=== PATIENT | female | born 1990 | race African-American/Black ===

== ENCOUNTER 2021-09-12 19:00 | Inpatient (IN) | payer OTHER ==
[2021-09-12 20:23] LABS: EOS % 1.2 % (0-4.5); HEMATOCRIT 30.6 % (32.4-45.2); HEMOGLOBIN 9.9 GM/dL (10.7-15.3); LYMPH % 27.7 % (8-40); MCH 23.9 pg (25.7-33.7); MCHC 32.2 g/dl (32.0-36.0); MEAN CELL VOLUME 74.1 fl (80-96); MEAN PLT VOLUME 8.2 fl (7.5-11.1); MONO % 10.3 % (3.8-10.2); NEUT % 59.8 % (42.8-82.8); PLATELET COUNT 233 10^3/uL (134-434); RBC 4.13 M/mm3 (3.60-5.2); RDW 16.6 % (11.6-15.6); WHITE BLOOD COUNT 5.8 K/mm3 (4.0-10.0)
[2021-09-12 20:28] VITALS: BMI 28.3
[2021-09-12] MEDS ORDERED: ELECTROLYTE-148 SOLN 1,000 ML IV SCH (20:30)
[2021-09-12] MEDS ORDERED: OXYTOCIN 30 UNITS in 0.9% NS 30 UNIT/500 ML INFUS.BAG IVPB SCH (20:30)
[2021-09-12 20:32] LABS: INR 0.89 (0.83-1.09); PROTHROMBIN TIME (PATIENT) 9.9 SEC (9.7-13.0)
[2021-09-12 20:35] LABS: ACTIVATED PTT 25.6 SECONDS (25.2-36.5)
[2021-09-12 20:50] LABS: BLOOD UREA NITROGEN 4.8 mg/dL (7-18)
[2021-09-12 20:53] LABS: CREATININE 0.5 mg/dL (0.55-1.3)
[2021-09-13] MEDS ORDERED: FENTANYL/BUPIVACAINE/NS/PF - PCEA - 50 ML DISP.SYRIN EP ONE ×2 (00:13→04:12)
[2021-09-13] MEDS ORDERED: BUPIVACAINE HCL/PF 0.25% (2.5MG/ML) 10 ML VIAL ONE (00:23)
[2021-09-13] MEDS ORDERED: NALOXONE HCL 0.4 MG/ML VIAL IVPUSH PRN (00:57)
[2021-09-13] MEDS ORDERED: FENTANYL/BUPIVACAINE/NS/PF - PCEA - 50 ML DISP.SYRIN EP SCH (01:00)
[2021-09-13] MEDS ORDERED: PCA PUMP NR ONE (04:12)
[2021-09-13] MEDS ORDERED: OXYTOCIN 20 UNITS in 0.9% NS 20 UNIT/1,000 ML INFUS.BAG IV ONE (04:41)
[2021-09-13] MEDS ORDERED: LIDOCAINE HCL 1% PRESERVATIVE FREE - 30ML VIAL ONE (04:41)
[2021-09-13] MEDS ORDERED: WITCH HAZEL 50% (TUCKS) 40 PAD/JAR PAD TP PRN (05:17)
[2021-09-13] MEDS ORDERED: BENZOCAINE 28 GM HEMORRHOIDAL OINTMENT TP PRN (05:17)
[2021-09-13] MEDS ORDERED: BISACODYL 10 MG SUPP.RECT RC PRN (05:17)
[2021-09-13] MEDS ORDERED: ACETAMINOPHEN 325 MG TABLET (FP) PO PRN (05:17)
[2021-09-13] MEDS ORDERED: METHYLERGONOVINE MALEATE 0.2 MG/1 ML AMP IM PRN (05:17)
[2021-09-13] MEDS ORDERED: BENZOCAINE 20% 57 GM BOTTLE TP PRN (05:17)
[2021-09-13] MEDS ORDERED: OXYTOCIN 20 UNITS in 0.9% NS 20 UNIT/1,000 ML INFUS.BAG IV SCH (05:30)
[2021-09-13] MEDS: IBUPROFEN 600 MG TABLET (FP) PO PRN (10:35)
[2021-09-14 09:03] LABS: BASO % 0.7 % (0-2.0); EOS % 1.7 % (0-4.5); HEMATOCRIT 26.2 % (32.4-45.2); HEMOGLOBIN 8.5 GM/dL (10.7-15.3); LYMPH % 24.8 % (8-40); MCH 24.3 pg (25.7-33.7); MCHC 32.5 g/dl (32.0-36.0); MEAN CELL VOLUME 74.6 fl (80-96); MEAN PLT VOLUME 8.8 fl (7.5-11.1); MONO % 7.9 % (3.8-10.2); NEUT % 64.9 % (42.8-82.8); PLATELET COUNT 177 10^3/uL (134-434); RBC 3.51 M/mm3 (3.60-5.2); RDW 15.9 % (11.6-15.6); WHITE BLOOD COUNT 8.5 K/mm3 (4.0-10.0)
[2021-09-14] MEDS: IBUPROFEN 600 MG TABLET (FP) PO PRN (09:10)
[2021-09-14 21:50] VITALS: PULSE 70
[2021-09-14] MEDS ORDERED: SENNOSIDES/DOCUSATE COMBO (SENNA PLUS) TABLET (UD) PO PRN (22:00)
[2021-09-15] MEDS: IBUPROFEN 600 MG TABLET (FP) PO PRN (08:14)
[2021-09-15 09:44] VITALS: BP 118/70; TEMP 98.8
== END 2021-09-15 12:30 | disposition home or self-care (01) | DRG 807 ==
LOC: JLDR 19:00 → J3W 09-13 06:09
PROVIDERS: ADMIT Specialist; ATTEND Specialist
PROC: 10E0XZZ Delivery of Products of Conception, External Approach (ICD-10-PCS; principal; 2021-09-13)
PROC: 0HQ9XZZ Repair Perineum Skin, External Approach (ICD-10-PCS; 2021-09-13)
PROC: 0W8NXZZ Division of Female Perineum, External Approach (ICD-10-PCS; 2021-09-13)
DX: O70.0 First degree perineal laceration during delivery (principal); Z37.0 Single live birth; Z3A.39 39 weeks gestation of pregnancy
CPT/HCPCS: 36415; 59409; 80048; 85025; 85610; 85730; 86780; 86850; 86900; 86901